=== PATIENT | female | born 1940 | race Caucasian/White ===

== ENCOUNTER 2016-08-11 15:40 | Outpatient (CLI) | payer MEDICARE, MEDICAID | END 2016-08-11 15:41 | DX: N39.0 Urinary tract infection, site not specified (principal) ==

== ENCOUNTER 2016-09-24 09:35 | Outpatient (CLI) | payer MEDICARE, MEDICAID | END 2016-09-24 09:36 | disposition home or self-care (01) | DX: E63.8 Other specified nutritional deficiencies (principal); E03.9 Hypothyroidism, unspecified ==

== ENCOUNTER 2016-09-25 02:40 | Outpatient (CLI) | payer MEDICARE, MEDICAID | END 2016-09-25 23:59 | DX: N39.0 Urinary tract infection, site not specified (principal) ==

== ENCOUNTER 2016-10-14 07:42 | Outpatient (CLI) | payer MEDICARE, MEDICAID | END 2016-10-14 07:43 | disposition home or self-care (01) | DX: I10 Essential (primary) hypertension (principal); I25.9 Chronic ischemic heart disease, unspecified; E03.9 Hypothyroidism, unspecified; J44.1 Chronic obstructive pulmonary disease with (acute) exacerbation ==

== ENCOUNTER 2016-10-21 21:00 | Outpatient (CLI) | payer MEDICARE, MEDICAID | END 2016-10-21 21:01 | disposition home or self-care (01) | DX: N39.0 Urinary tract infection, site not specified (principal) ==